=== PATIENT | female | born 1960 | race African-American/Black ===

== ENCOUNTER 2020-06-11 19:35 | Inpatient (IN) ==
[2020-06-11 20:03] LABS: Basophils % 0.1 % (0.0-0.8); Hematocrit 42.9 VOL% (35.7-47.0); Hemoglobin 14.6 GM/DL (12.0-16.0); Immature Granulocytes % 1.3 %; Immature Granulocytes Absolute 0.12 #; Lymphocytes # 0.7 10*3/uL (1.4-4.0); Lymphocytes % 7.7 % (21.3-54.2); Mean Corpuscular Volume 90.5 FL (87-102); Mean Platelet Volume 9.4 FL (9.6-12.0); Monocytes # 0.3 10*3/uL (0.11-0.8); Monocytes % 3.2 % (1.7-12.7); Neutrophils % 87.7 % (38.7-73.9); Platelet Count 320 T/CUMM (130-400); Red Blood Count 4.74 MC/CUMM (3.8-5.5); Red Cell Distribution Width 14.6 % (9.3-17.3); White Blood Count 9.5 T/CUMM (4-12)
[2020-06-11 20:20] LABS: Albumin 3.7 G/DL (3.4-5.0); Bilirubin,Total 0.7 MG/DL (0.2-1.0); Calcium 8.4 MG/DL (8.5-10.1); Osmolality,Calculated 263.9 MOS/KG (273-304); Potassium 3.3 MMOL/L (3.5-5.1)
[2020-06-11] MEDS ORDERED: NITROGLYCERIN 2% OINT 1 INCH/GM PACK TOP STA (21:07)
[2020-06-11] MEDS ORDERED: ASPIRIN 325 MG TABLET PO STA (21:07)
[2020-06-11] MEDS ORDERED: MORPHINE 4 MG/1 ML VIAL IV STA (21:07)
[2020-06-11] MEDS ORDERED: ONDANSETRON 4 MG/2 ML VIAL IV STA (21:07)
[2020-06-11] MEDS ORDERED: ENOXAPARIN 100 MG/ML SYRINGE SUBCUT STA (21:07)
[2020-06-11] MEDS ORDERED: ALUM/MAG/SIMETH/LIDO VISC 1:1 30 ML BOTTLE PO STA (21:07)
[2020-06-11] MEDS ORDERED: FUROSEMIDE 40 MG/4 ML VIAL IV STA (21:08)
[2020-06-11] MEDS ORDERED: methylPREDNISolone SOD SUC 125 MG/2 ML VIAL IV STA (21:09)
[2020-06-11] MEDS ORDERED: ALBUTEROL/IPRATROPIUM 3 ML NEB RESP TX STA (21:19)
[2020-06-11] MEDS ORDERED: DEXTROSE 50% 25 GM/50 ML VIAL IV PRN (21:20)
[2020-06-11] MEDS ORDERED: ONDANSETRON 4 MG/2 ML VIAL IV PRN (21:20)
[2020-06-11] MEDS ORDERED: GLUCAGON 1 MG VIAL IM PRN (21:20)
[2020-06-11] MEDS ORDERED: MORPHINE 4 MG/1 ML VIAL IV PRN (21:20)
[2020-06-11] MEDS ORDERED: MAGNESIUM SULF RIDER 4 GM in PREMIX 1 EACH IV PRN (21:29)
[2020-06-11] MEDS ORDERED: MAGNESIUM SULF RIDER 2 GM in PREMIX 1 EACH IV PRN (21:29)
[2020-06-11] MEDS ORDERED: ALBUTEROL/IPRATROPIUM 3 ML NEB RESP TX PRN (21:32)
[2020-06-11] MEDS ORDERED: DEXTROSE 50% 25 GM/50 ML SYRINGE IV PRN (21:42)
[2020-06-11 21:51] LABS: INR 1.1; PT Patient Result 11.4 SECS (9.8-11.9)
[2020-06-11] MEDS: POTASSIUM CHLORIDE 20 MEQ TABLET PO SCH (22:24)
[2020-06-12] MEDS: POTASSIUM CHLORIDE 20 MEQ TABLET PO SCH (01:04)
[2020-06-12] MEDS: NITROGLYCERIN 2% OINT 1 INCH/GM PACK TOP SCH ×2 (01:04→06:07)
[2020-06-12 03:06] LABS: Hematocrit 41.2 VOL% (35.7-47.0); Hemoglobin 14.1 GM/DL (12.0-16.0); Immature Granulocytes % 1.1 %; Immature Granulocytes Absolute 0.09 #; Lymphocytes # 0.6 10*3/uL (1.4-4.0); Lymphocytes % 6.8 % (21.3-54.2); Mean Corpuscular HGB Conc 34.2 GM/DL (32-36); Mean Corpuscular Volume 89.8 FL (87-102); Mean Platelet Volume 9.3 FL (9.6-12.0); Monocytes # 0.2 10*3/uL (0.11-0.8); Monocytes % 2.5 % (1.7-12.7); Neutrophils % 89.6 % (38.7-73.9); Platelet Count 298 T/CUMM (130-400); Red Blood Count 4.59 MC/CUMM (3.8-5.5); Red Cell Distribution Width 14.4 % (9.3-17.3); White Blood Count 8.6 T/CUMM (4-12)
[2020-06-12 03:42] LABS: Albumin 3.6 G/DL (3.4-5.0); Bilirubin,Total 0.6 MG/DL (0.2-1.0); Calcium 8.5 MG/DL (8.5-10.1); Osmolality,Calculated 266.7 MOS/KG (273-304); Potassium 4.6 MMOL/L (3.5-5.1); Risk Ratio 1.4; Total Protein 6.9 G/DL (6.4-8.3); VLDL Cholesterol 18.8 MG/DL
[2020-06-12] MEDS ORDERED: MAGNESIUM SULF RIDER 4 GM in PREMIX 1 EACH IV ONE (07:55)
[2020-06-12] MEDS ORDERED: FUROSEMIDE 40 MG/4 ML VIAL IV SCH (08:00)
[2020-06-12] MEDS ORDERED: SODIUM CHLORIDE 0.45% 1,000 ML IV SCH (08:00)
[2020-06-12] MEDS ORDERED: MAGNESIUM SULF RIDER 2 GM in PREMIX 1 EACH IV PRN (08:20)
[2020-06-12] MEDS ORDERED: diphenhydrAMINE CAP 50 MG CAPSULE PO ONE (08:20)
[2020-06-12] MEDS ORDERED: DIAZEPAM 5 MG TABLET PO ONE (08:20)
[2020-06-12] MEDS ORDERED: POTASSIUM CHLORIDE RIDER 10 MEQ in PREMIX 1 EACH IV PRN (08:20)
[2020-06-12] MEDS ORDERED: diphenhydrAMINE CAP 25 MG CAPSULE PO ONE (08:30)
[2020-06-12] MEDS ORDERED: HEPARIN/NACL 0.9% 2 UNITS/ML 1,000 ML IV ONE (08:41)
[2020-06-12] MEDS ORDERED: LIDOCAINE 1% 20 ML VIAL ONE (08:41)
[2020-06-12] MEDS: INSULIN REGULAR 100 UNIT/ML SUBCUT SCH ×4 (08:45→23:26)
[2020-06-12] MEDS: SODIUM BICARB INJ 100 MEQ in SODIUM CHLORIDE 0.45% 1,000 ML IV SCH ×2 (08:54→17:27)
[2020-06-12] MEDS: carvediloL 6.25 MG TABLET PO SCH ×2 (08:55→20:46)
[2020-06-12] MEDS: PANTOPRAZOLE 40 MG TABLET PO SCH (08:55)
[2020-06-12] MEDS ORDERED: ASPIRIN EC 325 MG TABLET PO SCH (09:00)
[2020-06-12 09:16] LABS: CKMB % 15.3 %
[2020-06-12 09:24] LABS: Troponin I 5.49 NG/ML (0.00-0.045)
[2020-06-12] MEDS ORDERED: fentaNYL 100 MCG/2 ML VIAL ONE (09:29)
[2020-06-12] MEDS ORDERED: MIDAZOLAM 2 MG/2 ML VIAL ONE ×2 (09:29→09:38)
[2020-06-12 09:52] LABS: Barbiturates Screen,Urine Negative (Negative); Benzodiazepines Screen,Urine Negative (Negative); Cannabinoid Screen,Urine Positive (Negative); Opiate Screen,Urine Positive (Negative); Phencyclidine Screen,Urine Negative (Negative)
[2020-06-12] MEDS ORDERED: BIVALIRUDIN 250 MG VIAL IV ONE (10:00)
[2020-06-12] MEDS ORDERED: CLOPIDOGREL 300 MG TABLET ONE (10:22)
[2020-06-12] MEDS ORDERED: NITROGLYCERIN DRIP 50 MG/250 ML BOTTLE IV ONE (10:27)
[2020-06-12] MEDS ORDERED: ZALEPLON 5 MG CAPSULE PO PRN (10:47)
[2020-06-12] MEDS ORDERED: ACETAMINOPHEN/CODEINE 300-30 MG TABLET PO PRN (10:47)
[2020-06-12] MEDS ORDERED: ACETAMINOPHEN 325 MG TABLET PO PRN (10:47)
[2020-06-12] MEDS ORDERED: NITROGLYCERIN SL 0.4 MG TABLET SL PRN (10:47)
[2020-06-12] MEDS ORDERED: DEXTROSE 50% 25 GM/50 ML VIAL IV PRN (11:25)
[2020-06-12] MEDS ORDERED: GLUCAGON 1 MG VIAL IM PRN (11:25)
[2020-06-12 11:45] LABS: CKMB % 14.9 %
[2020-06-12 11:49] LABS: Troponin I 8.46 NG/ML (0.00-0.045)
[2020-06-12] MEDS: amLODIPine 5 MG TABLET PO SCH (13:03)
[2020-06-12] MEDS ORDERED: diphenhydrAMINE CAP 25 MG CAPSULE PO PRN (14:47)
[2020-06-12 20:07] LABS: Troponin I 15.6 NG/ML (0.00-0.045)
[2020-06-12] MEDS: ATORVASTATIN 40 MG TABLET PO SCH (20:46)
[2020-06-12] MEDS ORDERED: ROSUVASTATIN 20 MG TABLET PO SCH (21:00)
[2020-06-12] MEDS ORDERED: ENOXAPARIN 80 MG/0.8 ML SYRINGE SUBCUT SCH (21:00)
[2020-06-13 03:03] LABS: Basophils % 0.1 % (0.0-0.8); Hematocrit 37.9 VOL% (35.7-47.0); Hemoglobin 12.8 GM/DL (12.0-16.0); Immature Granulocytes % 0.6 %; Immature Granulocytes Absolute 0.07 #; Lymphocytes # 1.1 10*3/uL (1.4-4.0); Lymphocytes % 9.1 % (21.3-54.2); Mean Corpuscular HGB Conc 33.8 GM/DL (32-36); Mean Corpuscular Volume 91.3 FL (87-102); Mean Platelet Volume 9.5 FL (9.6-12.0); Monocytes # 1.2 10*3/uL (0.11-0.8); Monocytes % 9.5 % (1.7-12.7); Neutrophils % 80.7 % (38.7-73.9); Platelet Count 233 T/CUMM (130-400); Red Blood Count 4.15 MC/CUMM (3.8-5.5); Red Cell Distribution Width 14.7 % (9.3-17.3); White Blood Count 12.1 T/CUMM (4-12)
[2020-06-13 03:26] LABS: Calcium 8.6 MG/DL (8.5-10.1); Osmolality,Calculated 287.5 MOS/KG (273-304); Potassium 3.9 MMOL/L (3.5-5.1)
[2020-06-13 03:31] LABS: CKMB % 12.6 %
[2020-06-13 03:36] LABS: Troponin I 19.2 NG/ML (0.00-0.045)
[2020-06-13] MEDS: SODIUM BICARB INJ 100 MEQ in SODIUM CHLORIDE 0.45% 1,000 ML IV SCH ×2 (05:07→16:22)
[2020-06-13] MEDS: INSULIN REGULAR 100 UNIT/ML SUBCUT SCH ×4 (09:19→21:00)
[2020-06-13] MEDS: CLOPIDOGREL 75 MG TABLET PO SCH (09:19)
[2020-06-13] MEDS: ASPIRIN EC 81 MG TABLET PO SCH (09:19)
[2020-06-13] MEDS: PANTOPRAZOLE 40 MG TABLET PO SCH (09:20)
[2020-06-13] MEDS: carvediloL 6.25 MG TABLET PO SCH ×2 (09:20→20:12)
[2020-06-13] MEDS: amLODIPine 5 MG TABLET PO SCH (09:20)
[2020-06-13] MEDS: ATORVASTATIN 40 MG TABLET PO SCH (20:12)
[2020-06-14 06:46] LABS: Basophils % 0.2 % (0.0-0.8); Eosinophils # 0.1 10*3/uL (0.0-0.87); Eosinophils % 0.6 % (0.00-10.9); Hematocrit 38.5 VOL% (35.7-47.0); Hemoglobin 12.7 GM/DL (12.0-16.0); Immature Granulocytes % 0.3 %; Immature Granulocytes Absolute 0.03 #; Lymphocytes # 2.1 10*3/uL (1.4-4.0); Lymphocytes % 22.2 % (21.3-54.2); Mean Platelet Volume 10.4 FL (9.6-12.0); Monocytes % 10.4 % (1.7-12.7); Neutrophils % 66.3 % (38.7-73.9); Platelet Count 243 T/CUMM (130-400); Red Blood Count 4.14 MC/CUMM (3.8-5.5); Red Cell Distribution Width 15.1 % (9.3-17.3); White Blood Count 9.4 T/CUMM (4-12)
[2020-06-14 06:49] LABS: Calcium 8.6 MG/DL (8.5-10.1); Potassium 3.7 MMOL/L (3.5-5.1)
[2020-06-14] MEDS: SODIUM BICARB INJ 100 MEQ in SODIUM CHLORIDE 0.45% 1,000 ML IV SCH ×2 (08:39→14:04)
[2020-06-14] MEDS: INSULIN REGULAR 100 UNIT/ML SUBCUT SCH ×2 (08:40→11:54)
[2020-06-14] MEDS: ASPIRIN EC 81 MG TABLET PO SCH (09:31)
[2020-06-14] MEDS: amLODIPine 5 MG TABLET PO SCH (09:31)
[2020-06-14] MEDS: CLOPIDOGREL 75 MG TABLET PO SCH (09:32)
[2020-06-14] MEDS: PANTOPRAZOLE 40 MG TABLET PO SCH (09:32)
[2020-06-14] MEDS: carvediloL 6.25 MG TABLET PO SCH (09:32)
[2020-06-14] MEDS ORDERED: hydrALAZINE 25 MG TABLET PO ONE (11:37)
[2020-06-14] MEDS ORDERED: ISOSORBIDE MONONITRATE 30 MG TABLET PO SCH (11:37)
[2020-06-14 12:42] VITALS: BP 178/84
== END 2020-06-14 15:45 | disposition home or self-care (01) ==
LOC: N.EDINP 19:35 → N.ED 19:35 → N.TELES 23:37
PROVIDERS: ADMIT Family Medicine; ATTEND Family Medicine

== ENCOUNTER 2020-09-24 18:16 | Inpatient (IN) ==
[2020-09-24] MEDS ORDERED: NITROGLYCERIN 2% OINT 1 INCH/GM PACK TOP STA (18:43)
[2020-09-24] MEDS ORDERED: ASPIRIN 325 MG TABLET PO STA (18:43)
[2020-09-24] MEDS ORDERED: hydrALAZINE 20 MG/1 ML VIAL IV STA (18:43)
[2020-09-24] MEDS ORDERED: FUROSEMIDE 100 MG/10 ML VIAL IV STA (18:43)
[2020-09-24] MEDS ORDERED: ONDANSETRON 4 MG/2 ML VIAL IV STA (18:43)
[2020-09-24] MEDS ORDERED: MORPHINE 4 MG/1 ML VIAL IV STA (18:43)
[2020-09-24 18:55] LABS: Basophils % 0.6 % (0.0-0.8); Eosinophils # 0.2 10*3/uL (0.0-0.87); Eosinophils % 2.6 % (0.00-10.9); Hematocrit 34.1 VOL% (35.7-47.0); Hemoglobin 10.8 GM/DL (12.0-16.0); Immature Granulocytes % 0.3 %; Immature Granulocytes Absolute 0.02 #; Lymphocytes # 0.9 10*3/uL (1.4-4.0); Lymphocytes % 13.9 % (21.3-54.2); Mean Corpuscular HGB Conc 31.7 GM/DL (32-36); Mean Corpuscular Volume 89.5 FL (87-102); Mean Platelet Volume 9.9 FL (9.6-12.0); Neutrophils % 71.6 % (38.7-73.9); Platelet Count 300 T/CUMM (130-400); Red Blood Count 3.81 MC/CUMM (3.8-5.5); Red Cell Distribution Width 14.3 % (9.3-17.3); White Blood Count 6.6 T/CUMM (4-12)
[2020-09-24 19:00] LABS: Albumin 3.5 G/DL (3.4-5.0); Calcium 8.6 MG/DL (8.5-10.1); Total Protein 6.2 G/DL (6.4-8.2)
[2020-09-24] MEDS ORDERED: ALBUTEROL NEB SOLN 5 MG/ML 20 ML/BOTTLE CONT NEB SCH (19:00)
[2020-09-24 19:01] LABS: Osmolality,Calculated 289.7 MOS/KG (273-304); Potassium 3.3 MMOL/L (3.5-5.1)
[2020-09-24 19:03] LABS: INR 1.2; PT Patient Result 12.7 SECS (9.8-11.9)
[2020-09-24] MEDS ORDERED: MAGNESIUM SULF RIDER 2 GM in PREMIX 1 EACH IV STA (19:10)
[2020-09-24] MEDS ORDERED: POTASSIUM CHLORIDE 20 MEQ TABLET PO STA (19:13)
[2020-09-24] MEDS ORDERED: ENOXAPARIN 100 MG/ML SYRINGE SUBCUT STA (19:19)
[2020-09-24] MEDS ORDERED: GLUCAGON 1 MG VIAL IM PRN (20:20)
[2020-09-24] MEDS ORDERED: DOCUSATE SODIUM 100 MG CAPSULE PO PRN (20:20)
[2020-09-24] MEDS ORDERED: ONDANSETRON 4 MG/2 ML VIAL IV PRN (20:20)
[2020-09-24] MEDS ORDERED: DEXTROSE 50% 25 GM/50 ML VIAL IV PRN (20:20)
[2020-09-24] MEDS ORDERED: NITROGLYCERIN SL 0.4 MG TABLET SL PRN (20:28)
[2020-09-24] MEDS ORDERED: cilostazoL 50 MG TABLET PO SCH (21:00)
[2020-09-24] MEDS ORDERED: DOXAZOSIN 1 MG TABLET PO SCH (21:00)
[2020-09-24] MEDS ORDERED: ALBUTEROL/IPRATROPIUM 3 ML NEB RESP TX ONE (22:59)
[2020-09-24] MEDS: methylPREDNISolone SOD SUC 40 MG/1 ML VIAL IV SCH (23:30)
[2020-09-24] MEDS: BUDESONIDE/FORMOTEROL 160-4.5 INHALER 6 GM INH SCH (23:30)
[2020-09-24] MEDS: ATORVASTATIN 40 MG TABLET PO SCH (23:30)
[2020-09-24] MEDS: FUROSEMIDE 40 MG/4 ML VIAL IV SCH (23:30)
[2020-09-24] MEDS: carvediloL 12.5 MG TABLET PO SCH (23:30)
[2020-09-25] MEDS: ALBUTEROL/IPRATROPIUM 3 ML NEB RESP TX SCH ×4 (02:17→19:15)
[2020-09-25 06:16] LABS: Basophils % 0.5 % (0.0-0.8); Eosinophils # 0.2 10*3/uL (0.0-0.87); Eosinophils % 2.5 % (0.00-10.9); Hematocrit 30.6 VOL% (35.7-47.0); Hemoglobin 9.9 GM/DL (12.0-16.0); Immature Granulocytes % 0.5 %; Immature Granulocytes Absolute 0.03 #; Lymphocytes # 0.8 10*3/uL (1.4-4.0); Lymphocytes % 12.4 % (21.3-54.2); Mean Corpuscular HGB Conc 32.4 GM/DL (32-36); Mean Corpuscular Volume 89.7 FL (87-102); Monocytes % 13.1 % (1.7-12.7); Platelet Count 245 T/CUMM (130-400); Red Blood Count 3.41 MC/CUMM (3.8-5.5); Red Cell Distribution Width 14.3 % (9.3-17.3); White Blood Count 6.3 T/CUMM (4-12)
[2020-09-25 06:32] LABS: Calcium 8.3 MG/DL (8.5-10.1); Potassium 3.5 MMOL/L (3.5-5.1)
[2020-09-25] MEDS: ACETAMINOPHEN 325 MG TABLET PO PRN (07:04)
[2020-09-25] MEDS ORDERED: FUROSEMIDE 40 MG/4 ML VIAL IV SCH (09:00)
[2020-09-25] MEDS: ISOSORBIDE MONONITRATE 30 MG TABLET PO SCH (10:37)
[2020-09-25] MEDS: carvediloL 12.5 MG TABLET PO SCH ×2 (10:37→21:57)
[2020-09-25] MEDS: NICOTINE 21 MG/24 HR PATCH TRANSDERM SCH (10:38)
[2020-09-25] MEDS: PANTOPRAZOLE 40 MG TABLET PO SCH (10:38)
[2020-09-25] MEDS: CLOPIDOGREL 75 MG TABLET PO SCH (10:38)
[2020-09-25] MEDS: ASPIRIN EC 81 MG TABLET PO SCH (10:38)
[2020-09-25] MEDS: methylPREDNISolone SOD SUC 40 MG/1 ML VIAL IV SCH (10:39)
[2020-09-25] MEDS: FUROSEMIDE 40 MG/4 ML VIAL IV SCH (10:40)
[2020-09-25] MEDS: BUDESONIDE/FORMOTEROL 160-4.5 INHALER 6 GM INH SCH ×2 (10:42→21:10)
[2020-09-25] MEDS ORDERED: MAGNESIUM SULF RIDER 2 GM in PREMIX 1 EACH IV ONE (11:22)
[2020-09-25 16:01] LABS: Bacteria,Urine Occasional /HPF (Few); Bilirubin,Urine Negative (Negative); Blood, Urine Negative (Negative); Glucose,Urine (UA) Negative (Negative); Hyaline Casts,Urine 56 /LPF (0-3); Ketones,Urine Negative (Negative); Mucus,Urine Occasional /LPF (Occasional); Nitrite,Urine Negative (Negative); Protein,Urine 30 MG/DL; Squamous Epithelial Cell,Urine Occasional /HPF (0-10); Urine Appearance CLEAR (Clear); Urine Color Yellow (Yellow); Urine Specific Gravity 1.011 (1.001-1.035)
[2020-09-25] MEDS: ATORVASTATIN 40 MG TABLET PO SCH (21:57)
[2020-09-25] MEDS: ENOXAPARIN 40 MG/0.4 ML SYRINGE SUBCUT SCH (21:58)
[2020-09-25] MEDS: ZALEPLON 5 MG CAPSULE PO PRN (22:51)
[2020-09-26] MEDS: ALBUTEROL/IPRATROPIUM 3 ML NEB RESP TX SCH ×4 (00:36→19:28)
[2020-09-26 05:37] LABS: Basophils % 0.1 % (0.0-0.8); Hematocrit 31.8 VOL% (35.7-47.0); Hemoglobin 10.4 GM/DL (12.0-16.0); Immature Granulocytes % 0.6 %; Immature Granulocytes Absolute 0.04 #; Lymphocytes # 0.4 10*3/uL (1.4-4.0); Lymphocytes % 6.5 % (21.3-54.2); Mean Corpuscular HGB Conc 32.7 GM/DL (32-36); Mean Corpuscular Volume 88.8 FL (87-102); Monocytes % 12.7 % (1.7-12.7); Neutrophils % 80.1 % (38.7-73.9); Platelet Count 236 T/CUMM (130-400); Red Blood Count 3.58 MC/CUMM (3.8-5.5); Red Cell Distribution Width 14.1 % (9.3-17.3); White Blood Count 6.8 T/CUMM (4-12)
[2020-09-26] MEDS ORDERED: BUPIVACAINE MPF 0.25% 30 ML VIAL ONE (06:21)
[2020-09-26] MEDS ORDERED: HEPARIN 5,000 UNIT/1 ML VIAL ONE (06:21)
[2020-09-26] MEDS ORDERED: LIDOCAINE 1%/EPI INJ 20 ML VIAL ONE (06:21)
[2020-09-26 06:47] LABS: Calcium 8.5 MG/DL (8.5-10.1); Osmolality,Calculated 283.4 MOS/KG (273-304); Potassium 3.9 MMOL/L (3.5-5.1)
[2020-09-26] MEDS ORDERED: TISSUE ADHESIVE 1 EACH APPLICATOR TOP ONE (07:59)
[2020-09-26 08:30] LABS: % Iron Saturation 6.7 % (18-50)
[2020-09-26] MEDS: ASPIRIN EC 81 MG TABLET PO SCH (08:34)
[2020-09-26] MEDS: ISOSORBIDE MONONITRATE 30 MG TABLET PO SCH (08:34)
[2020-09-26] MEDS: carvediloL 12.5 MG TABLET PO SCH (08:34)
[2020-09-26] MEDS: CLOPIDOGREL 75 MG TABLET PO SCH (08:34)
[2020-09-26] MEDS: NICOTINE 21 MG/24 HR PATCH TRANSDERM SCH (08:35)
[2020-09-26] MEDS: PANTOPRAZOLE 40 MG TABLET PO SCH (08:42)
[2020-09-26] MEDS: FUROSEMIDE 40 MG/4 ML VIAL IV SCH (08:48)
[2020-09-26] MEDS: methylPREDNISolone SOD SUC 40 MG/1 ML VIAL IV SCH (08:51)
[2020-09-26] MEDS: BUDESONIDE/FORMOTEROL 160-4.5 INHALER 6 GM INH SCH ×2 (08:52→21:34)
[2020-09-26 09:39] LABS: Folate 3.3 NG/ML (5.38-24.0)
[2020-09-26] MEDS ORDERED: DIAZEPAM 5 MG TABLET PO ONE (10:59)
[2020-09-26] MEDS ORDERED: diphenhydrAMINE CAP 25 MG CAPSULE PO ONE (10:59)
[2020-09-26] MEDS ORDERED: FUROSEMIDE 40 MG/4 ML VIAL IV ONE (17:15)
[2020-09-26] MEDS: ATORVASTATIN 40 MG TABLET PO SCH (21:25)
[2020-09-26] MEDS: NEBIVOLOL 10 MG TABLET PO SCH (21:26)
[2020-09-26] MEDS: ENOXAPARIN 40 MG/0.4 ML SYRINGE SUBCUT SCH (21:28)
[2020-09-26] MEDS: ZALEPLON 5 MG CAPSULE PO PRN (21:31)
[2020-09-27] MEDS: ALBUTEROL/IPRATROPIUM 3 ML NEB RESP TX SCH ×4 (00:04→20:43)
[2020-09-27 05:46] LABS: Basophils % 0.3 % (0.0-0.8); Eosinophils % 0.3 % (0.00-10.9); Hematocrit 33.5 VOL% (35.7-47.0); Hemoglobin 10.6 GM/DL (12.0-16.0); Immature Granulocytes % 0.6 %; Immature Granulocytes Absolute 0.06 #; Lymphocytes # 0.8 10*3/uL (1.4-4.0); Mean Corpuscular HGB Conc 31.6 GM/DL (32-36); Mean Corpuscular Volume 90.3 FL (87-102); Mean Platelet Volume 10.7 FL (9.6-12.0); Monocytes % 10.6 % (1.7-12.7); Neutrophils % 80.2 % (38.7-73.9); Platelet Count 258 T/CUMM (130-400); Red Blood Count 3.71 MC/CUMM (3.8-5.5); Red Cell Distribution Width 14.4 % (9.3-17.3); White Blood Count 9.6 T/CUMM (4-12)
[2020-09-27] MEDS: ISOSORBIDE MONONITRATE 30 MG TABLET PO SCH ×3 (05:48→12:09)
[2020-09-27 06:03] LABS: Calcium 8.8 MG/DL (8.5-10.1); Osmolality,Calculated 281.4 MOS/KG (273-304); Potassium 3.6 MMOL/L (3.5-5.1)
[2020-09-27] MEDS ORDERED: DIAZEPAM 5 MG TABLET PO ONE ×2 (07:00→14:00)
[2020-09-27] MEDS ORDERED: diphenhydrAMINE CAP 25 MG CAPSULE PO ONE ×2 (07:00→14:00)
[2020-09-27] MEDS ORDERED: MAGNESIUM SULF RIDER 2 GM in PREMIX 1 EACH IV ONE (08:32)
[2020-09-27] MEDS: ASPIRIN EC 81 MG TABLET PO SCH (09:13)
[2020-09-27] MEDS: FERROUS SULFATE 325 MG TABLET PO SCH (09:13)
[2020-09-27] MEDS: CLOPIDOGREL 75 MG TABLET PO SCH (09:14)
[2020-09-27] MEDS: NICOTINE 21 MG/24 HR PATCH TRANSDERM SCH (09:14)
[2020-09-27] MEDS: BUDESONIDE/FORMOTEROL 160-4.5 INHALER 6 GM INH SCH ×2 (09:14→21:27)
[2020-09-27] MEDS: PANTOPRAZOLE 40 MG TABLET PO SCH (09:15)
[2020-09-27] MEDS: FUROSEMIDE 40 MG/4 ML VIAL IV SCH ×2 (09:26→15:49)
[2020-09-27] MEDS: methylPREDNISolone SOD SUC 40 MG/1 ML VIAL IV SCH (09:31)
[2020-09-27] MEDS ORDERED: SODIUM CHLORIDE 0.9% 1,000 ML IV SCH (11:00)
[2020-09-27] MEDS ORDERED: hydrALAZINE 20 MG/1 ML VIAL IV ONE (11:54)
[2020-09-27] MEDS ORDERED: LIDOCAINE 1% 20 ML VIAL ONE (13:48)
[2020-09-27] MEDS ORDERED: HEPARIN/NACL 0.9% 2 UNITS/ML 2,000 UNIT/1,000 ML BAG IV ONE (13:48)
[2020-09-27] MEDS ORDERED: fentaNYL 100 MCG/2 ML VIAL ONE (13:48)
[2020-09-27] MEDS ORDERED: MIDAZOLAM 2 MG/2 ML VIAL ONE (13:48)
[2020-09-27] MEDS ORDERED: hydrALAZINE 20 MG/1 ML VIAL ONE ×2 (14:09→14:25)
[2020-09-27] MEDS ORDERED: METOPROLOL TARTRATE 5 MG/5 ML VIAL IV ONE ×2 (14:14→14:20)
[2020-09-27] MEDS: NEBIVOLOL 10 MG TABLET PO SCH (21:23)
[2020-09-27] MEDS: ACETAMINOPHEN 325 MG TABLET PO PRN (21:24)
[2020-09-27] MEDS: ATORVASTATIN 40 MG TABLET PO SCH (21:24)
[2020-09-27] MEDS: ENOXAPARIN 40 MG/0.4 ML SYRINGE SUBCUT SCH (21:25)
[2020-09-28] MEDS: MORPHINE 4 MG/1 ML VIAL IV PRN ×2 (00:27→05:13)
[2020-09-28] MEDS: ALBUTEROL/IPRATROPIUM 3 ML NEB RESP TX SCH ×4 (02:17→18:37)
[2020-09-28 05:33] LABS: Basophils % 0.2 % (0.0-0.8); Eosinophils % 0.4 % (0.00-10.9); Hematocrit 31.4 VOL% (35.7-47.0); Hemoglobin 9.9 GM/DL (12.0-16.0); Immature Granulocytes % 0.4 %; Immature Granulocytes Absolute 0.04 #; Lymphocytes # 1.2 10*3/uL (1.4-4.0); Lymphocytes % 12.9 % (21.3-54.2); Mean Corpuscular HGB Conc 31.5 GM/DL (32-36); Mean Corpuscular Volume 90.2 FL (87-102); Mean Platelet Volume 9.7 FL (9.6-12.0); Monocytes % 11.6 % (1.7-12.7); Neutrophils % 74.5 % (38.7-73.9); Platelet Count 297 T/CUMM (130-400); Red Blood Count 3.48 MC/CUMM (3.8-5.5); Red Cell Distribution Width 14.6 % (9.3-17.3)
[2020-09-28 05:58] LABS: Calcium 8.5 MG/DL (8.5-10.1); Osmolality,Calculated 283.3 MOS/KG (273-304); Potassium 3.1 MMOL/L (3.5-5.1)
[2020-09-28] MEDS: ISOSORBIDE MONONITRATE 30 MG TABLET PO SCH (08:23)
[2020-09-28] MEDS: FUROSEMIDE 40 MG/4 ML VIAL IV SCH ×2 (08:23→16:35)
[2020-09-28] MEDS ORDERED: POTASSIUM CHLORIDE 20 MEQ TABLET PO ONE (10:20)
[2020-09-28] MEDS: ACETAMINOPHEN/CODEINE 300-30 MG TABLET PO PRN (10:25)
[2020-09-28] MEDS: NICOTINE 21 MG/24 HR PATCH TRANSDERM SCH (10:34)
[2020-09-28] MEDS: FERROUS SULFATE 325 MG TABLET PO SCH (10:34)
[2020-09-28] MEDS: ASPIRIN EC 81 MG TABLET PO SCH (10:34)
[2020-09-28] MEDS: predniSONE 20 MG TABLET PO SCH (10:35)
[2020-09-28] MEDS: PANTOPRAZOLE 40 MG TABLET PO SCH (10:35)
[2020-09-28] MEDS: CLOPIDOGREL 75 MG TABLET PO SCH (10:35)
[2020-09-28] MEDS: BUDESONIDE/FORMOTEROL 160-4.5 INHALER 6 GM INH SCH ×2 (10:36→20:40)
[2020-09-28] MEDS ORDERED: MAGNESIUM SULF RIDER 2 GM in PREMIX 1 EACH IV ONE (12:19)
[2020-09-28 13:40] LABS: % Iron Saturation 13.5 % (18-50)
[2020-09-28 13:49] LABS: Folate 8.6 NG/ML (5.38-24.0)
[2020-09-28] MEDS: ENOXAPARIN 40 MG/0.4 ML SYRINGE SUBCUT SCH (20:40)
[2020-09-28] MEDS: ATORVASTATIN 40 MG TABLET PO SCH (20:40)
[2020-09-28] MEDS: ASCORBIC ACID 500 MG TABLET PO SCH (20:40)
[2020-09-28] MEDS: NEBIVOLOL 10 MG TABLET PO SCH (20:40)
[2020-09-29] MEDS: ALBUTEROL/IPRATROPIUM 3 ML NEB RESP TX SCH ×4 (00:45→19:25)
[2020-09-29 05:35] LABS: Basophils % 0.3 % (0.0-0.8); Eosinophils # 0.1 10*3/uL (0.0-0.87); Eosinophils % 0.7 % (0.00-10.9); Hematocrit 33.8 VOL% (35.7-47.0); Hemoglobin 10.9 GM/DL (12.0-16.0); Immature Granulocytes % 0.3 %; Immature Granulocytes Absolute 0.03 #; Lymphocytes # 1.1 10*3/uL (1.4-4.0); Lymphocytes % 12.9 % (21.3-54.2); Mean Corpuscular HGB Conc 32.2 GM/DL (32-36); Mean Corpuscular Volume 90.6 FL (87-102); Mean Platelet Volume 9.6 FL (9.6-12.0); Neutrophils % 72.8 % (38.7-73.9); Platelet Count 293 T/CUMM (130-400); Red Blood Count 3.73 MC/CUMM (3.8-5.5); Red Cell Distribution Width 14.4 % (9.3-17.3); White Blood Count 8.8 T/CUMM (4-12)
[2020-09-29 05:57] LABS: Calcium 9.1 MG/DL (8.5-10.1); Osmolality,Calculated 280.4 MOS/KG (273-304); Potassium 3.5 MMOL/L (3.5-5.1)
[2020-09-29] MEDS ORDERED: FUROSEMIDE 40 MG/4 ML VIAL IV ONE (07:34)
[2020-09-29] MEDS: PANTOPRAZOLE 40 MG TABLET PO SCH (09:51)
[2020-09-29] MEDS: BUDESONIDE/FORMOTEROL 160-4.5 INHALER 6 GM INH SCH ×2 (09:51→21:00)
[2020-09-29] MEDS: ASPIRIN EC 81 MG TABLET PO SCH (09:51)
[2020-09-29] MEDS: predniSONE 20 MG TABLET PO SCH (09:51)
[2020-09-29] MEDS: CLOPIDOGREL 75 MG TABLET PO SCH (09:51)
[2020-09-29] MEDS: FERROUS SULFATE 325 MG TABLET PO SCH (09:52)
[2020-09-29] MEDS: ISOSORBIDE MONONITRATE 30 MG TABLET PO SCH (09:52)
[2020-09-29] MEDS: NICOTINE 21 MG/24 HR PATCH TRANSDERM SCH (09:52)
[2020-09-29] MEDS: ASCORBIC ACID 500 MG TABLET PO SCH ×2 (09:52→21:00)
[2020-09-29] MEDS: FUROSEMIDE 40 MG/4 ML VIAL IV SCH (15:28)
[2020-09-29] MEDS: ATORVASTATIN 40 MG TABLET PO SCH (21:00)
[2020-09-29] MEDS: ENOXAPARIN 40 MG/0.4 ML SYRINGE SUBCUT SCH (21:00)
[2020-09-29] MEDS: NEBIVOLOL 10 MG TABLET PO SCH (21:00)
[2020-09-30] MEDS: ALBUTEROL/IPRATROPIUM 3 ML NEB RESP TX SCH ×4 (02:14→19:33)
[2020-09-30 05:18] LABS: Basophils % 0.2 % (0.0-0.8); Eosinophils # 0.1 10*3/uL (0.0-0.87); Hematocrit 36.3 VOL% (35.7-47.0); Hemoglobin 11.1 GM/DL (12.0-16.0); Immature Granulocytes % 0.4 %; Immature Granulocytes Absolute 0.04 #; Lymphocytes # 1.3 10*3/uL (1.4-4.0); Lymphocytes % 14.3 % (21.3-54.2); Mean Corpuscular HGB Conc 30.6 GM/DL (32-36); Mean Platelet Volume 9.7 FL (9.6-12.0); Monocytes % 11.7 % (1.7-12.7); Neutrophils % 72.4 % (38.7-73.9); Platelet Count 297 T/CUMM (130-400); Red Blood Count 3.99 MC/CUMM (3.8-5.5); Red Cell Distribution Width 14.4 % (9.3-17.3)
[2020-09-30 05:27] LABS: Calcium 8.8 MG/DL (8.5-10.1); Osmolality,Calculated 282.3 MOS/KG (273-304); Potassium 3.3 MMOL/L (3.5-5.1)
[2020-09-30] MEDS ORDERED: POTASSIUM CHLORIDE 20 MEQ TABLET PO ONE (08:31)
[2020-09-30] MEDS ORDERED: MAGNESIUM SULF RIDER 2 GM in PREMIX 1 EACH IV ONE ×2 (08:31→13:52)
[2020-09-30] MEDS: ASPIRIN EC 81 MG TABLET PO SCH (08:32)
[2020-09-30] MEDS: predniSONE 20 MG TABLET PO SCH (08:32)
[2020-09-30] MEDS: NICOTINE 21 MG/24 HR PATCH TRANSDERM SCH (08:32)
[2020-09-30] MEDS: ISOSORBIDE MONONITRATE 30 MG TABLET PO SCH (08:32)
[2020-09-30] MEDS: ASCORBIC ACID 500 MG TABLET PO SCH ×2 (08:32→21:45)
[2020-09-30] MEDS: CLOPIDOGREL 75 MG TABLET PO SCH (08:32)
[2020-09-30] MEDS: FERROUS SULFATE 325 MG TABLET PO SCH (08:32)
[2020-09-30] MEDS: FUROSEMIDE 40 MG/4 ML VIAL IV SCH ×2 (08:33→15:57)
[2020-09-30] MEDS: PANTOPRAZOLE 40 MG TABLET PO SCH (09:16)
[2020-09-30] MEDS: BUDESONIDE/FORMOTEROL 160-4.5 INHALER 6 GM INH SCH ×2 (11:01→21:55)
[2020-09-30] MEDS ORDERED: FUROSEMIDE 40 MG/4 ML VIAL IV ONE (16:13)
[2020-09-30] MEDS: NEBIVOLOL 10 MG TABLET PO SCH (21:44)
[2020-09-30] MEDS: ATORVASTATIN 40 MG TABLET PO SCH (21:45)
[2020-09-30] MEDS: ENOXAPARIN 40 MG/0.4 ML SYRINGE SUBCUT SCH (21:46)
[2020-09-30] MEDS: ZALEPLON 5 MG CAPSULE PO PRN (22:03)
[2020-10-01] MEDS: ALBUTEROL/IPRATROPIUM 3 ML NEB RESP TX SCH ×4 (00:43→19:40)
[2020-10-01 05:19] LABS: Basophils % 0.2 % (0.0-0.8); Eosinophils # 0.1 10*3/uL (0.0-0.87); Eosinophils % 1.2 % (0.00-10.9); Hematocrit 32.3 VOL% (35.7-47.0); Hemoglobin 10.4 GM/DL (12.0-16.0); Immature Granulocytes % 0.5 %; Immature Granulocytes Absolute 0.05 #; Lymphocytes # 1.1 10*3/uL (1.4-4.0); Lymphocytes % 11.5 % (21.3-54.2); Mean Corpuscular HGB Conc 32.2 GM/DL (32-36); Mean Corpuscular Volume 87.3 FL (87-102); Mean Platelet Volume 9.6 FL (9.6-12.0); Monocytes % 10.6 % (1.7-12.7); Platelet Count 289 T/CUMM (130-400); Red Cell Distribution Width 14.3 % (9.3-17.3); White Blood Count 9.7 T/CUMM (4-12)
[2020-10-01 05:33] LABS: Calcium 9.2 MG/DL (8.5-10.1); Osmolality,Calculated 279.4 MOS/KG (273-304); Osmolality,Calculated 281.3 MOS/KG (273-304); Potassium 3.2 MMOL/L (3.5-5.1); Potassium 3.3 MMOL/L (3.5-5.1)
[2020-10-01] MEDS: NICOTINE 21 MG/24 HR PATCH TRANSDERM SCH (08:24)
[2020-10-01] MEDS: ASPIRIN EC 81 MG TABLET PO SCH (08:24)
[2020-10-01] MEDS: BUDESONIDE/FORMOTEROL 160-4.5 INHALER 6 GM INH SCH ×2 (08:25→21:00)
[2020-10-01] MEDS: ASCORBIC ACID 500 MG TABLET PO SCH ×2 (08:25→20:59)
[2020-10-01] MEDS: FUROSEMIDE 40 MG/4 ML VIAL IV SCH ×2 (08:25→15:47)
[2020-10-01] MEDS: FERROUS SULFATE 325 MG TABLET PO SCH (08:25)
[2020-10-01] MEDS: ISOSORBIDE MONONITRATE 30 MG TABLET PO SCH (08:25)
[2020-10-01] MEDS: predniSONE 20 MG TABLET PO SCH (08:25)
[2020-10-01] MEDS: PANTOPRAZOLE 40 MG TABLET PO SCH (08:25)
[2020-10-01] MEDS: CLOPIDOGREL 75 MG TABLET PO SCH (08:25)
[2020-10-01 11:50] LABS: Bilirubin,Direct 0.18 MG/DL (0.0-0.20); Bilirubin,Indirect 0.3 MG/DL (0.0-1.0); Bilirubin,Total 0.5 MG/DL (0.2-1.0); Total Protein 6.2 G/DL (6.4-8.2)
[2020-10-01] MEDS ORDERED: MAGNESIUM SULF RIDER 2 GM in PREMIX 1 EACH IV ONE (11:59)
[2020-10-01] MEDS ORDERED: POTASSIUM CHLORIDE 20 MEQ TABLET PO ONE (11:59)
[2020-10-01 20:28] LABS: Total Protein 24 Hr Ur Result 408 MG/24HR (0-149.1); Total Volume,Urine 5100 ML (400-2000)
[2020-10-01] MEDS: ATORVASTATIN 40 MG TABLET PO SCH (20:59)
[2020-10-01] MEDS: ZALEPLON 5 MG CAPSULE PO PRN (21:00)
[2020-10-01] MEDS: NEBIVOLOL 10 MG TABLET PO SCH (21:00)
[2020-10-01] MEDS: ENOXAPARIN 40 MG/0.4 ML SYRINGE SUBCUT SCH (21:01)
[2020-10-02] MEDS: ALBUTEROL/IPRATROPIUM 3 ML NEB RESP TX SCH ×3 (01:13→19:15)
[2020-10-02 05:38] LABS: Basophils % 0.4 % (0.0-0.8); Eosinophils # 0.2 10*3/uL (0.0-0.87); Eosinophils % 1.5 % (0.00-10.9); Hematocrit 34.6 VOL% (35.7-47.0); Immature Granulocytes % 0.4 %; Immature Granulocytes Absolute 0.05 #; Lymphocytes # 1.4 10*3/uL (1.4-4.0); Lymphocytes % 12.5 % (21.3-54.2); Mean Corpuscular HGB Conc 31.8 GM/DL (32-36); Mean Corpuscular Volume 88.7 FL (87-102); Mean Platelet Volume 9.5 FL (9.6-12.0); Monocytes % 10.9 % (1.7-12.7); Neutrophils % 74.3 % (38.7-73.9); Platelet Count 320 T/CUMM (130-400); Red Cell Distribution Width 14.3 % (9.3-17.3); White Blood Count 11.2 T/CUMM (4-12)
[2020-10-02 06:04] LABS: Calcium 9.3 MG/DL (8.5-10.1); Osmolality,Calculated 276.7 MOS/KG (273-304); Potassium 3.7 MMOL/L (3.5-5.1)
[2020-10-02 06:21] LABS: Albumin 3.2 G/DL (3.4-5.0); Bilirubin,Total 0.9 MG/DL (0.2-1.0); Calcium 9.3 MG/DL (8.5-10.1); Osmolality,Calculated 275.7 MOS/KG (273-304); Potassium 3.7 MMOL/L (3.5-5.1); Total Protein 6.7 G/DL (6.4-8.2)
[2020-10-02 06:53] LABS: Total Protein (Chem) 6.4 G/DL (6.4-8.3)
[2020-10-02 08:08] LABS: Albumin (SPE) 4.2 G/DL (3.2-5.3); Albumin (SPE) Rel % 65.5 %; Alpha 1 (SPE) 0.2 G/DL (0.1-0.4); Alpha 1 (SPE) Rel % 3.1 %; Alpha 2 (SPE) 0.7 G/DL (0.4-1.0); Alpha 2 (SPE) Rel % 11.1 %; Beta (SPE) 0.7 G/DL (0.5-1.1); Beta (SPE) Rel % 10.8 %; Gamma (SPE) 0.6 G/DL (0.7-1.7); Gamma (SPE) Rel % 9.5 %
[2020-10-02] MEDS ORDERED: POTASSIUM CHLORIDE 20 MEQ TABLET PO ONE (08:28)
[2020-10-02] MEDS: ACETAMINOPHEN/CODEINE 300-30 MG TABLET PO PRN (08:57)
[2020-10-02] MEDS: CLOPIDOGREL 75 MG TABLET PO SCH (08:58)
[2020-10-02] MEDS: ASPIRIN EC 81 MG TABLET PO SCH (08:58)
[2020-10-02] MEDS: ISOSORBIDE MONONITRATE 30 MG TABLET PO SCH (08:58)
[2020-10-02] MEDS: FERROUS SULFATE 325 MG TABLET PO SCH (08:58)
[2020-10-02] MEDS: ASCORBIC ACID 500 MG TABLET PO SCH ×2 (08:58→21:56)
[2020-10-02] MEDS: FUROSEMIDE 40 MG/4 ML VIAL IV SCH ×2 (08:58→16:12)
[2020-10-02] MEDS: PANTOPRAZOLE 40 MG TABLET PO SCH (08:58)
[2020-10-02] MEDS: predniSONE 20 MG TABLET PO SCH (08:58)
[2020-10-02] MEDS: NICOTINE 21 MG/24 HR PATCH TRANSDERM SCH (08:59)
[2020-10-02] MEDS: BUDESONIDE/FORMOTEROL 160-4.5 INHALER 6 GM INH SCH ×2 (09:04→21:56)
[2020-10-02] MEDS: ZALEPLON 5 MG CAPSULE PO PRN (20:59)
[2020-10-02] MEDS: ENOXAPARIN 40 MG/0.4 ML SYRINGE SUBCUT SCH (21:55)
[2020-10-02] MEDS: ATORVASTATIN 40 MG TABLET PO SCH (21:56)
[2020-10-02] MEDS: NEBIVOLOL 10 MG TABLET PO SCH (21:56)
[2020-10-03] MEDS: ALBUTEROL/IPRATROPIUM 3 ML NEB RESP TX SCH ×5 (00:07→19:32)
[2020-10-03 07:14] LABS: Basophils # 0.1 10*3/uL (0.0-0.2); Basophils % 0.5 % (0.0-0.8); Eosinophils # 0.2 10*3/uL (0.0-0.87); Hematocrit 34.3 VOL% (35.7-47.0); Hemoglobin 10.9 GM/DL (12.0-16.0); Immature Granulocytes % 0.4 %; Immature Granulocytes Absolute 0.04 #; Lymphocytes # 1.5 10*3/uL (1.4-4.0); Lymphocytes % 15.1 % (21.3-54.2); Mean Corpuscular HGB Conc 31.8 GM/DL (32-36); Mean Corpuscular Volume 88.9 FL (87-102); Mean Platelet Volume 9.9 FL (9.6-12.0); Monocytes % 12.1 % (1.7-12.7); Neutrophils % 69.9 % (38.7-73.9); Platelet Count 325 T/CUMM (130-400); Red Blood Count 3.86 MC/CUMM (3.8-5.5); Red Cell Distribution Width 14.2 % (9.3-17.3); White Blood Count 9.6 T/CUMM (4-12)
[2020-10-03 07:19] LABS: Calcium 9.2 MG/DL (8.5-10.1); Osmolality,Calculated 281.4 MOS/KG (273-304); Potassium 3.4 MMOL/L (3.5-5.1)
[2020-10-03] MEDS ORDERED: POTASSIUM CHLORIDE 20 MEQ TABLET PO ONE (08:55)
[2020-10-03] MEDS: ISOSORBIDE MONONITRATE 30 MG TABLET PO SCH (10:59)
[2020-10-03] MEDS: CLOPIDOGREL 75 MG TABLET PO SCH (10:59)
[2020-10-03] MEDS: predniSONE 10 MG TABLET PO SCH (10:59)
[2020-10-03] MEDS: FERROUS SULFATE 325 MG TABLET PO SCH (10:59)
[2020-10-03] MEDS: ASCORBIC ACID 500 MG TABLET PO SCH ×2 (10:59→20:36)
[2020-10-03] MEDS: PANTOPRAZOLE 40 MG TABLET PO SCH (10:59)
[2020-10-03] MEDS: ASPIRIN EC 81 MG TABLET PO SCH (10:59)
[2020-10-03] MEDS: FUROSEMIDE 40 MG/4 ML VIAL IV SCH ×2 (10:59→18:00)
[2020-10-03] MEDS: BUDESONIDE/FORMOTEROL 160-4.5 INHALER 6 GM INH SCH ×2 (11:00→20:36)
[2020-10-03] MEDS: NICOTINE 21 MG/24 HR PATCH TRANSDERM SCH (11:00)
[2020-10-03] MEDS: ENOXAPARIN 40 MG/0.4 ML SYRINGE SUBCUT SCH (20:35)
[2020-10-03] MEDS: NEBIVOLOL 10 MG TABLET PO SCH (20:36)
[2020-10-03] MEDS: ATORVASTATIN 40 MG TABLET PO SCH (20:36)
[2020-10-03] MEDS: ZALEPLON 5 MG CAPSULE PO PRN (21:49)
[2020-10-04] MEDS: ALBUTEROL/IPRATROPIUM 3 ML NEB RESP TX SCH ×4 (00:35→19:36)
[2020-10-04 05:31] LABS: Basophils # 0.1 10*3/uL (0.0-0.2); Basophils % 0.6 % (0.0-0.8); Eosinophils # 0.2 10*3/uL (0.0-0.87); Eosinophils % 1.8 % (0.00-10.9); Hemoglobin 11.4 GM/DL (12.0-16.0); Immature Granulocytes % 0.6 %; Immature Granulocytes Absolute 0.06 #; Lymphocytes # 1.5 10*3/uL (1.4-4.0); Lymphocytes % 14.4 % (21.3-54.2); Mean Corpuscular HGB Conc 32.6 GM/DL (32-36); Mean Corpuscular Volume 85.6 FL (87-102); Mean Platelet Volume 9.4 FL (9.6-12.0); Monocytes % 11.8 % (1.7-12.7); Neutrophils % 70.8 % (38.7-73.9); Platelet Count 326 T/CUMM (130-400); Red Blood Count 4.09 MC/CUMM (3.8-5.5); Red Cell Distribution Width 14.1 % (9.3-17.3); White Blood Count 10.2 T/CUMM (4-12)
[2020-10-04 05:53] LABS: Osmolality,Calculated 275.8 MOS/KG (273-304); Potassium 3.4 MMOL/L (3.5-5.1)
[2020-10-04] MEDS: predniSONE 10 MG TABLET PO SCH (08:14)
[2020-10-04] MEDS: FERROUS SULFATE 325 MG TABLET PO SCH (08:14)
[2020-10-04] MEDS: ASCORBIC ACID 500 MG TABLET PO SCH ×2 (08:14→21:21)
[2020-10-04] MEDS: ASPIRIN EC 81 MG TABLET PO SCH (08:14)
[2020-10-04] MEDS: PANTOPRAZOLE 40 MG TABLET PO SCH (08:14)
[2020-10-04] MEDS: ISOSORBIDE MONONITRATE 30 MG TABLET PO SCH (08:14)
[2020-10-04] MEDS: CLOPIDOGREL 75 MG TABLET PO SCH (08:14)
[2020-10-04] MEDS: POTASSIUM CHLORIDE 20 MEQ TABLET PO PRN ×2 (08:14→10:16)
[2020-10-04] MEDS: NICOTINE 21 MG/24 HR PATCH TRANSDERM SCH (08:14)
[2020-10-04] MEDS: FUROSEMIDE 40 MG/4 ML VIAL IV SCH (08:15)
[2020-10-04] MEDS: BUDESONIDE/FORMOTEROL 160-4.5 INHALER 6 GM INH SCH ×2 (08:15→21:24)
[2020-10-04] MEDS ORDERED: POTASSIUM CHLORIDE 20 MEQ TABLET PO ONE (11:33)
[2020-10-04 11:56] LABS: Urine Volume 5100 mL
[2020-10-04] MEDS: FUROSEMIDE 80 MG TABLET PO SCH (15:24)
[2020-10-04] MEDS: NEBIVOLOL 10 MG TABLET PO SCH (21:21)
[2020-10-04] MEDS: ENOXAPARIN 40 MG/0.4 ML SYRINGE SUBCUT SCH (21:21)
[2020-10-04] MEDS: ZALEPLON 5 MG CAPSULE PO PRN (21:22)
[2020-10-04] MEDS: ATORVASTATIN 40 MG TABLET PO SCH (21:22)
[2020-10-05] MEDS: ALBUTEROL/IPRATROPIUM 3 ML NEB RESP TX SCH ×4 (00:03→19:17)
[2020-10-05 05:34] LABS: Basophils % 0.5 % (0.0-0.8); Eosinophils # 0.2 10*3/uL (0.0-0.87); Hematocrit 34.5 VOL% (35.7-47.0); Hemoglobin 11.3 GM/DL (12.0-16.0); Immature Granulocytes % 0.4 %; Immature Granulocytes Absolute 0.03 #; Lymphocytes # 1.5 10*3/uL (1.4-4.0); Lymphocytes % 17.8 % (21.3-54.2); Mean Corpuscular HGB Conc 32.8 GM/DL (32-36); Mean Corpuscular Volume 86.9 FL (87-102); Mean Platelet Volume 9.4 FL (9.6-12.0); Monocytes % 14.7 % (1.7-12.7); Neutrophils % 64.6 % (38.7-73.9); Platelet Count 323 T/CUMM (130-400); Red Blood Count 3.97 MC/CUMM (3.8-5.5); White Blood Count 8.4 T/CUMM (4-12)
[2020-10-05 05:56] LABS: Calcium 9.2 MG/DL (8.5-10.1); Osmolality,Calculated 274.8 MOS/KG (273-304); Potassium 3.9 MMOL/L (3.5-5.1)
[2020-10-05 06:04] LABS: Uric Acid 9.7 MG/DL (2.6-6.0)
[2020-10-05] MEDS: ISOSORBIDE MONONITRATE 30 MG TABLET PO SCH (09:04)
[2020-10-05] MEDS: ASPIRIN EC 81 MG TABLET PO SCH (09:04)
[2020-10-05] MEDS: FERROUS SULFATE 325 MG TABLET PO SCH (09:04)
[2020-10-05] MEDS: NICOTINE 21 MG/24 HR PATCH TRANSDERM SCH (09:04)
[2020-10-05] MEDS: PANTOPRAZOLE 40 MG TABLET PO SCH (09:05)
[2020-10-05] MEDS: predniSONE 10 MG TABLET PO SCH (09:05)
[2020-10-05] MEDS: BUDESONIDE/FORMOTEROL 160-4.5 INHALER 6 GM INH SCH ×2 (09:05→21:10)
[2020-10-05] MEDS: CLOPIDOGREL 75 MG TABLET PO SCH (09:05)
[2020-10-05] MEDS: FUROSEMIDE 80 MG TABLET PO SCH ×2 (09:05→15:03)
[2020-10-05] MEDS: ASCORBIC ACID 500 MG TABLET PO SCH ×2 (09:05→21:02)
[2020-10-05] MEDS: ENOXAPARIN 40 MG/0.4 ML SYRINGE SUBCUT SCH (21:02)
[2020-10-05] MEDS: NEBIVOLOL 10 MG TABLET PO SCH (21:02)
[2020-10-05] MEDS: ZALEPLON 5 MG CAPSULE PO PRN (21:02)
[2020-10-05] MEDS: ATORVASTATIN 40 MG TABLET PO SCH (21:02)
[2020-10-06] MEDS: ALBUTEROL/IPRATROPIUM 3 ML NEB RESP TX SCH ×3 (01:20→12:05)
[2020-10-06 06:01] LABS: Basophils % 0.5 % (0.0-0.8); Eosinophils # 0.1 10*3/uL (0.0-0.87); Eosinophils % 1.6 % (0.00-10.9); Hematocrit 36.5 VOL% (35.7-47.0); Hemoglobin 11.7 GM/DL (12.0-16.0); Immature Granulocytes % 0.3 %; Immature Granulocytes Absolute 0.03 #; Lymphocytes # 1.7 10*3/uL (1.4-4.0); Lymphocytes % 19.6 % (21.3-54.2); Mean Corpuscular HGB Conc 32.1 GM/DL (32-36); Mean Corpuscular Volume 87.5 FL (87-102); Mean Platelet Volume 9.3 FL (9.6-12.0); Platelet Count 348 T/CUMM (130-400); Red Blood Count 4.17 MC/CUMM (3.8-5.5); White Blood Count 8.6 T/CUMM (4-12)
[2020-10-06 06:29] LABS: Calcium 9.4 MG/DL (8.5-10.1); Osmolality,Calculated 284.4 MOS/KG (273-304); Potassium 3.4 MMOL/L (3.5-5.1)
[2020-10-06] MEDS: FERROUS SULFATE 325 MG TABLET PO SCH (08:22)
[2020-10-06] MEDS: ASPIRIN EC 81 MG TABLET PO SCH (08:22)
[2020-10-06] MEDS: ISOSORBIDE MONONITRATE 30 MG TABLET PO SCH (08:23)
[2020-10-06] MEDS: predniSONE 10 MG TABLET PO SCH (08:23)
[2020-10-06] MEDS: NICOTINE 21 MG/24 HR PATCH TRANSDERM SCH (08:23)
[2020-10-06] MEDS: PANTOPRAZOLE 40 MG TABLET PO SCH (08:23)
[2020-10-06] MEDS: ASCORBIC ACID 500 MG TABLET PO SCH (08:23)
[2020-10-06] MEDS: FUROSEMIDE 80 MG TABLET PO SCH (08:23)
[2020-10-06] MEDS: CLOPIDOGREL 75 MG TABLET PO SCH (08:23)
[2020-10-06] MEDS: BUDESONIDE/FORMOTEROL 160-4.5 INHALER 6 GM INH SCH (08:37)
[2020-10-06] MEDS: POTASSIUM CHLORIDE 20 MEQ TABLET PO PRN (08:53)
[2020-10-06] MEDS ORDERED: POTASSIUM CHLORIDE 20 MEQ TABLET PO ONE (11:08)
[2020-10-06 11:31] VITALS: BP 153/72
[2020-10-07] MEDS ORDERED: FUROSEMIDE 80 MG TABLET PO SCH (09:00)
[2020-10-08 11:52] LABS: Immuno Free Light Chain Kappa 4.27 MG/DL (0.33-1.94); Immuno Free Light Chain Lambda 4.34 MG/DL (0.57-2.63); Immuno Free Light Chain Ratio 0.98 MG/DL (0.26-1.65)
== END 2020-10-06 13:30 | disposition home or self-care (01) | DRG 286 ==
LOC: N.ED 18:16 → N.EDINP 18:16 → N.TELES 22:32 → SUATTDRO 09-25 09:26
PROVIDERS: ADMIT Internal Medicine; ATTEND Internal Medicine
PROC: CLCCHCL (ICD-10-PCS; 2020-09-27 13:15)